=== PATIENT | female | born 1990 | race Caucasian/White ===

== ENCOUNTER 2019-06-25 17:15 | Observation (INO) | payer OTHER ==
[~2019-06-25] VITALS: Ht 150 cm; Wt 74.4 kg
[2019-06-25] MEDS ORDERED: SALMH IH (18:33)
[2019-06-25 18:35] VITALS: BP 114/62
== END 2019-06-25 20:15 | disposition home or self-care (01) ==
LOC: 4S 17:15
PROVIDERS: ADMIT Obstetrics & Gynecology; ATTEND Obstetrics & Gynecology
DX: O42.912 Preterm premature rupture of membranes, unspecified as to length of time between rupture and onset of labor, second trimester (principal); Z3A.28 28 weeks gestation of pregnancy
CPT/HCPCS: 36415; 76805; 81002; 89060; G0378

== ENCOUNTER 2019-09-08 12:20 | Inpatient (IN) | payer OTHER ==
[~2019-09-08] VITALS: Ht 150 cm; Wt 83.0 kg
[~2019-09-08 12:20] MED LIST: SALMH IH
[2019-09-08] MEDS ORDERED: CARBOPROST TROMETHAMINE 250 MCG/ML AMP IM PRN (12:30)
[2019-09-08] MEDS ORDERED: LIDOCAINE/PF 1% 30 ML VIAL INJ PRN (12:30)
[2019-09-08] MEDS ORDERED: METOCLOPRAMIDE HCL 5 MG/ML 2 ML VIAL IVP PRN (12:30)
[2019-09-08] MEDS ORDERED: METHYLERGONOVINE MALEATE 0.2 MG/ML VIAL IM PRN (12:30)
[2019-09-08] MEDS ORDERED: CITRIC ACID/SODIUM CITRATE 30 ML SOLUTION UDCUP PO PRN (12:30)
[2019-09-08] MEDS ORDERED: OXYTOCIN 30 UNITS/LACT RINGERS 500 ML IV ONE (12:30)
[2019-09-08] MEDS ORDERED: RINGERS SOLUTION,LACTATED 1,000 ML IV PRN (12:30)
[2019-09-08] MEDS ORDERED: DiphenhydrAMINE HCL 50 MG/ML VIAL IVP ONE (13:30)
[2019-09-08 13:40] VITALS: BP 111/62
[2019-09-08 14:22] LABS: BASOPHILS % (AUTO) 0.4 % (0.0-2.0); EOSINOPHILS % (AUTO) 3.6 % (1.0-6.0); HEMOGLOBIN 11.8 g/dL (12.0-16.0); LYMPHOCYTES # (AUTO) 1.2 K/uL (1.0-4.8); LYMPHOCYTES % (AUTO) 16.3 % (22.0-44.0); MEAN CORPUSCULAR HGB CONC 33.6 G/dL (31.0-37.0); MEAN CORPUSCULAR VOLUME 92 fL (80-100); MONOCYTES # (AUTO) 0.6 K/uL (0.1-1.0); NEUTROPHILS # (AUTO) 5.4 K/uL (1.8-7.7); NEUTROPHILS % (AUTO) 71.7 % (40.0-70.0); PLATELET COUNT (AUTO) 198 K/uL (150-450); RED CELL DISTRIBUTION WIDTH 13.8 % (11.5-14.5)
[2019-09-08] MEDS ORDERED: PREN-217 PO (14:38)
[2019-09-08] MEDS ORDERED: ALBU8HFA IH (14:40)
[2019-09-08 17:51] LABS: ANION GAP 10 mmol/L (8-16); CALCIUM, TOTAL 8.7 mg/dL (8.8-10.5); CARBON DIOXIDE 23 mmol/L (22-29); CHLORIDE 103 mmol/L (98-107); CREATININE 0.64 mg/dL (0.60-1.30); GLOMERULAR FILTR. RATE CALC > 60 mL/min (>60); GLUCOSE,RANDOM 136 mg/dL (70-110); POTASSIUM 3.7 mmol/L (3.5-5.1); SODIUM SERUM 136 mmol/L (136-145); UREA NITROGEN, BLOOD 8 mg/dL (7-18)
[2019-09-08 17:55] LABS: ALANINE AMINOTRANSFERASE 16 U/L (12-78); ALBUMIN 2.4 g/dL (3.4-5.0); ALKALINE PHOSPHATASE 113 U/L (46-116); ASPARTATE AMINOTRANSFERASE 17 U/L (15-37); BILIRUBIN,TOTAL 0.2 mg/dL (0.1-1.0); TOTAL PROTEIN, SERUM 5.9 g/dL (6.4-8.2)
[2019-09-08] MEDS: RINGERS SOLUTION,LACTATED 1,000 ML IV SCH ×2 (18:18→18:20)
[2019-09-08] MEDS: MISOPROSTOL 50 MCG TABLET PO SCH ×3 (18:20→22:36)
[2019-09-08] MEDS ORDERED: OXYGEN THERAPY IH SCH (20:00)
[2019-09-09] MEDS: RINGERS SOLUTION,LACTATED 1,000 ML IV SCH ×4 (01:08→19:44)
[2019-09-09] MEDS: DiphenhydrAMINE HCL 50 MG/ML VIAL IVP PRN ×2 (01:09→07:51)
[2019-09-09] MEDS: MISOPROSTOL 50 MCG TABLET PO SCH (02:16)
[2019-09-09] MEDS ORDERED: OXYTOCIN 30 UNITS/LACT RINGERS 500 ML IV PRN (04:51)
[2019-09-09] MEDS ORDERED: MINERAL OIL 30 ML UDCUP VG ONE (05:00)
[2019-09-09] MEDS ORDERED: FentaNYL CITRATE-PF 100 MCG/2 ML VIAL IVP PRN (09:00)
[2019-09-09] MEDS ORDERED: ROPIVACAINE HCL/PF 0.2% 100 ML ED ONE (09:35)
[2019-09-09] MEDS ORDERED: FentaNYL CITRATE-PF 100 MCG/2 ML VIAL ONE (10:41)
[2019-09-09] MEDS ORDERED: MIDAZOLAM HCL 2 MG/2 ML VIAL ONE (10:41)
[2019-09-09] MEDS ORDERED: MORPHINE SULFATE/PF 1 MG/ML 10 ML AMP ONE (10:42)
[2019-09-09] MEDS ORDERED: ONDANSETRON HCL 4 MG/2 ML VIAL IVP PRN (11:45)
[2019-09-09] MEDS ORDERED: NALBUPHINE HCL 10 MG/ML VIAL IVP PRN (11:45)
[2019-09-09] MEDS ORDERED: DiphenhydrAMINE HCL 50 MG/ML VIAL IVP PRN (11:45)
[2019-09-09] MEDS ORDERED: AMPICILLIN SODIUM 2 GM/NS 100 ML IV ONE (17:30)
[2019-09-09] MEDS: ROPIVACAINE HCL/PF 0.2% 100 ML ED PRN (19:45)
[2019-09-10] MEDS ORDERED: MINERAL OIL 30 ML UDCUP VG ONE (00:05)
[2019-09-10] MEDS ORDERED: GENTAMICIN 120 MG/NACL ISO-OSM 100 ML IV ONE (01:50)
[2019-09-10] MEDS ORDERED: ACETAMINOPHEN 325 MG TABLET PO ONE ×2 (01:51→04:24)
[2019-09-10] MEDS: ROPIVACAINE HCL/PF 0.2% 100 ML ED PRN (03:00)
[2019-09-10] MEDS ORDERED: SALBUTAMOL IH PRN (03:15)
[2019-09-10] MEDS ORDERED: OXYTOCIN 30 UNITS/LACT RINGERS 500 ML IV ONE (03:46)
[2019-09-10] MEDS ORDERED: MEPERIDINE-PF 25 MG/ML VIAL IVP ONE (04:00)
[2019-09-10] MEDS ORDERED: BENZOCAINE 20%/MENTHOL 56 GM SPRAY CANISTER TP PRN (04:00)
[2019-09-10] MEDS ORDERED: IBUPROFEN 800 MG TABLET PO PRN (04:00)
[2019-09-10] MEDS ORDERED: MAGNESIUM HYDROXIDE SUSPENSION 30 ML UDCUP PO PRN (04:00)
[2019-09-10] MEDS ORDERED: LANOLIN 7 GM OINTMENT TP PRN (04:00)
[2019-09-10] MEDS ORDERED: MISOPROSTOL 100 MCG TABLET PO ONE (04:00)
[2019-09-10] MEDS ORDERED: OxyCODONE HCL/ACETAMINOPHEN 5-325 MG TABLET PO PRN ×2 (04:00)
[2019-09-10] MEDS ORDERED: GLYCERIN/WITCH HAZEL LEAF 40 PADS JAR TP PRN (04:00)
[2019-09-10] MEDS ORDERED: LIDOCAINE/PF 1% 30 ML VIAL INJ PRN (04:00)
[2019-09-10] MEDS ORDERED: GENTAMICIN 80 MG/NACL ISO-OSM 50 ML IV ONE (04:26)
[2019-09-10] MEDS ORDERED: AMPICILLIN SODIUM 2 GM/NS 100 ML IV ONE (04:26)
[2019-09-10] MEDS ORDERED: RINGERS SOLUTION,LACTATED 1,000 ML IV ONE ×2 (04:45)
[2019-09-10] MEDS ORDERED: FLUTICASONE IH SCH (09:00)
[2019-09-10] MEDS ORDERED: SALMETEROL IH SCH (09:00)
[2019-09-10] MEDS: GENTAMICIN 80 MG/NACL ISO-OSM 50 ML IV SCH ×2 (09:53→18:05)
[2019-09-11] MEDS: GENTAMICIN 80 MG/NACL ISO-OSM 50 ML IV SCH (04:28)
[2019-09-11 06:34] LABS: BASOPHILS % (AUTO) 0.2 % (0.0-2.0); EOSINOPHILS % (AUTO) 3.4 % (1.0-6.0); HEMATOCRIT 31.3 % (36-46); HEMOGLOBIN 10.7 g/dL (12.0-16.0); LYMPHOCYTES # (AUTO) 1.7 K/uL (1.0-4.8); LYMPHOCYTES % (AUTO) 11.1 % (22.0-44.0); MEAN CORPUSCULAR HEMOGLOBIN 31.2 pg (26.0-34.0); MEAN CORPUSCULAR HGB CONC 34.1 G/dL (31.0-37.0); MEAN CORPUSCULAR VOLUME 91 fL (80-100); MONOCYTES # (AUTO) 0.8 K/uL (0.1-1.0); MONOCYTES % (AUTO) 5.2 % (2.0-9.0); NEUTROPHILS # (AUTO) 12.1 K/uL (1.8-7.7); NEUTROPHILS % (AUTO) 80.1 % (40.0-70.0); PLATELET COUNT (AUTO)-OB 165 K/uL (150-450); RED BLOOD CELL COUNT(AUTO) 3.42 MIL/uL (4.00-5.20)
[2019-09-11] MEDS ORDERED: ACET-2247 PO (08:48)
[2019-09-11] MEDS ORDERED: IBUP-2070 PO (08:49)
[2019-09-11] MEDS ORDERED: DOCU-275 PO (08:50)
== END 2019-09-11 12:30 | disposition home or self-care (01) | DRG 807 ==
LOC: OBSVTOIN 12:20 → 4S 12:20
PROVIDERS: ADMIT Obstetrics & Gynecology; ATTEND Obstetrics & Gynecology
PROC: 10E0XZZ Delivery of Products of Conception, External Approach (ICD-10-PCS; principal; 2019-09-10)
PROC: 3E0R3BZ Introduction of Anesthetic Agent into Spinal Canal, Percutaneous Approach (ICD-10-PCS; 2019-09-10)
PROC: 00HU33Z Insertion of Infusion Device into Spinal Canal, Percutaneous Approach (ICD-10-PCS; 2019-09-10)
DX: O69.81X0 Labor and delivery complicated by cord around neck, without compression, not applicable or unspecified (principal); Z37.0 Single live birth; Z3A.38 38 weeks gestation of pregnancy
CPT/HCPCS: 82239; 86850; 86900; 86901; J0290; J1200; J1580; J2175; J2250; J2590; J2795; J3010; J7120